=== PATIENT | female | born 1970 | race Caucasian/White ===

== ENCOUNTER 2017-03-30 10:00 | Outpatient (CLI) | payer MEDICARE ==
[~2017-03-30 10:00] MED LIST: FLVX50T PO; GEMF600T PO; HCTZ12.5T GT; LISI10TA2 PO; LVT.15T PO; OXCA300T4 PO
== END 2017-03-30 10:29 | disposition home or self-care (01) ==
LOC: SLEEP 10:00
PROVIDERS: ATTEND Family Medicine
DX: G47.33 Obstructive sleep apnea (adult) (pediatric) (principal)

== ENCOUNTER 2017-04-19 19:34 | Outpatient (CLI) | payer MEDICARE | END 2017-04-20 06:10 | disposition home or self-care (01) | LOC: SLEEP 19:34 | PROVIDERS: ATTEND Family Medicine | DX: G47.33 Obstructive sleep apnea (adult) (pediatric) (principal) | CPT/HCPCS: 95811 ==

== ENCOUNTER 2018-06-04 09:11 | Outpatient (RCR) | payer MEDICARE ==
[2018-06-04 09:35] LABS: BASOPHILS % (AUTO) 0 % (0-10); EOSINOPHILS # (AUTO) 0.2 10^3/uL (0.0-0.3); EOSINOPHILS % (AUTO) 1 % (0-10); HEMATOCRIT 41 % (35-52); HEMOGLOBIN 13.2 G/DL (11.5-16.0); LYMPHOCYTES # (AUTO) 2.9 X 10^3 (1.0-4.0); LYMPHOCYTES % (AUTO) 28 % (12-44); MEAN CORPUSCULAR HEMOGLOBIN 29 PG (25-34); MEAN CORPUSCULAR HGB CONC 32 G/DL (32-36); MEAN CORPUSCULAR VOLUME 89 FL (80-99); MEAN PLATELET VOLUME 9.2 FL (7.4-10.4); MONOCYTES # (AUTO) 0.6 X 10^3 (0.0-1.0); MONOCYTES % (AUTO) 6 % (0-12); NEUTROPHILS # (AUTO) 6.7 X 10^3 (1.8-7.8); NEUTROPHILS % (AUTO) 65 % (42-75); PLATELET COUNT 355 10^3/uL (130-400); RED CELL DISTRIBUTION WIDTH 13.7 % (10.0-14.5); WHITE BLOOD COUNT 10.4 10^3/uL (4.3-11.0)
[2018-06-04 09:56] LABS: ALANINE AMINOTRANSFERASE 27 U/L (0-55); ALBUMIN 4.2 GM/DL (3.2-4.5); ALKALINE PHOSPHATASE 88 U/L (40-136); BILIRUBIN,TOTAL 0.2 MG/DL (0.1-1.0); BUN/CREATININE RATIO 16; CALCIUM 9.6 MG/DL (8.5-10.1); CARBON DIOXIDE 27 MMOL/L (21-32); CHLORIDE 104 MMOL/L (98-107); CREATININE SERUM 0.76 MG/DL (0.60-1.30); GFR ESTIMATED > 60; GLUCOSE 132 MG/DL (70-105); POTASSIUM 3.8 MMOL/L (3.6-5.0); SODIUM 140 MMOL/L (135-145); TOTAL PROTEIN 7.4 GM/DL (6.4-8.2)
== END 2018-09-02 | disposition home or self-care (01) ==
LOC: ONC 09:11
PROVIDERS: ATTEND Internal Medicine Hematology & Oncology
DX: D72.829 Elevated white blood cell count, unspecified (principal); Z22.322 Carrier or suspected carrier of Methicillin resistant Staphylococcus aureus; E66.9 Obesity, unspecified; F17.210 Nicotine dependence, cigarettes, uncomplicated; F41.9 Anxiety disorder, unspecified; I10 Essential (primary) hypertension; Z80.1 Family history of malignant neoplasm of trachea, bronchus and lung; Z79.899 Other long term (current) drug therapy; Z79.84 Long term (current) use of oral hypoglycemic drugs
CPT/HCPCS: 36415; 80053; 85025; 99214

== ENCOUNTER → 2018-11-07 | Outpatient (CLI) | payer MEDICARE ==
--- NOTE | 2018-11-07 17:44 | Diagnostic Imaging Report ---
PATIENT HISTORY: RIGHT KNEE PAIN. TECHNIQUE: Three views of the right knee. COMPARISON: None. FINDINGS: No acute fracture or dislocation is seen in the right knee. Alignment appears normal. Joint spaces are generally preserved. There is mild chondrocalcinosis. No significant joint effusion is present. IMPRESSION: No acute osseous abnormality seen in the right knee. Dictated by: Dictated on workstation # [id number]
== END ==
LOC: RAD 11:37
PROVIDERS: ATTEND Nurse Practitioner Family
DX: M25.561 Pain in right knee (principal)
CPT/HCPCS: 73562

== ENCOUNTER 2020-05-04 05:48 | Outpatient (RCR) | payer MEDICARE ==
[~2020-05-04] VITALS: Ht 165 cm; Wt 113.6 kg
[~2020-05-04 05:48] MED LIST changes: +FLUT9.9S NS; +FLUV100T3 PO; +GEMF600T8 PO; +LEVO100T7 PO; +LISI1TAB46 PO; +LORA-714 PO; +METF-397 PO; +OXCA150T3 PO; +VERA120C2 PO
== END 2020-05-04 09:42 | disposition home or self-care (01) ==
LOC: PREOP 05:48
PROVIDERS: ATTEND Orthopaedic Surgery
DX: Z01.812 Encounter for preprocedural laboratory examination (principal); S83.241A Other tear of medial meniscus, current injury, right knee, initial encounter; Z20.828 Contact with and (suspected) exposure to other viral communicable diseases
CPT/HCPCS: 87635

== ENCOUNTER 2020-05-06 07:38 | Day surgery (SDC) | payer MEDICARE ==
--- NOTE | 2020-04-27 12:46 | HISTORY AND PHYSICAL ---
DATE OF SERVICE: ADMISSION HISTORY AND PHYSICAL DATE OF ADMISSION: 05/06/2020. This will be for outpatient surgery on 05/06/2020 for right knee arthroscopy. HISTORY OF PRESENT ILLNESS: The patient is a 49-year-old female with progressively worsening right medial knee pain with associated swelling, catching and locking. She reports a sharp stabbing pain at times in the medial aspect of her knee. She denies paresthesias. She has had some back issues in the past, but reports no radicular symptoms currently. REVIEW OF SYSTEMS: No chest pain, no shortness of breath and no dysuria. PAST MEDICAL HISTORY: Hypertension, heart palpitations, prediabetes and sleep apnea. PAST SURGICAL HISTORY: Bilateral vein stripping, breast biopsy, tonsillectomy, hysterectomy, abdominal cyst excision, hammertoe correction, cholecystectomy, appendectomy and . FAMILY HISTORY: Significant for hypertension. PRIMARY CARE PROVIDER: Dr. Caraballo. MEDICATIONS: Levothyroxine, Lopid, fluvoxamine, lisinopril, Flonase, verapamil, metformin, loratadine and Trileptal. ALLERGIES: BACTRIM and STATINS. SOCIAL HISTORY: The patient denies alcohol or tobacco use. RADIOGRAPHS: Reveal mild medial joint space narrowing. PHYSICAL EXAMINATION: GENERAL: The patient is well-developed, well-nourished, in no acute distress. HEENT: Normocephalic and atraumatic. Pupils are equal, round, reactive to light. Oropharynx is clear. NECK: Supple, no lymphadenopathy. LUNGS: Clear to auscultation bilaterally. HEART: Regular rate and rhythm. ABDOMEN: Soft, nontender and nondistended. EXTREMITIES: The right knee demonstrates moderate effusion. She is markedly tender along the medial joint line, which reproduces her symptoms along with Abril's medially. There is no audible click with Abril's. There is no varus valgus laxity. Negative anterior and posterior drawer. Range of motion is 0/0/135. She has no pain with straight leg raising or internal or external rotation of the right hip. IMPRESSION: Right knee medial meniscus tear with associated chondromalacia. PLAN: Right knee arthroscopy with partial meniscectomy and chondroplasty. Risks, benefits, options, ramifications and recovery were discussed at length with the patient. She understands and wishes to proceed. Job ID: [id number] DocumentID: [id number] Dictated Date: 04/27/2020 11:24:11 Fiber Picker Date: 04/27/2020 12:45:53 Dictated By: MONICA CUMMINGS MD
[~2020-05-06] VITALS: Ht 165 cm; Wt 113.6 kg
[2020-05-06] VITALS (10 sets, daily range): BP systolic 112–138; BP diastolic 61–90
[~2020-05-06 07:38] MED LIST changes: +HYDROcodone/APAP 7.5 MG/325 MG (LORTAB, LORCET PLUS) TABLET PO PRN
[2020-05-06] MEDS ORDERED: LACTATED RINGERS 1,000 ML IV PRN (07:49)
[2020-05-06] MEDS ORDERED: ceFAZolin INJECTION 1,000 MG in WATER (STERILE) FOR INJECTION 10 ML IV ONE (08:00)
[2020-05-06] MEDS ORDERED: CATHETER FLUSH 10 ML SYR IV PRN (08:00)
[2020-05-06] MEDS ORDERED: MIDAZOLAM 2 MG/2 ML (VERSED) VIAL ONE (08:32)
[2020-05-06] MEDS ORDERED: proPOfol 200 MG/20 ML (DIPRIVAN) VIAL IV ONE (08:32)
[2020-05-06] MEDS ORDERED: ONDANSETRON 4 MG/2 ML (SDV) Z0FRAN ONE (08:32)
[2020-05-06] MEDS ORDERED: LIDOCAINE PF 2% 5 ML (XYLOCAINE) VIAL ONE (08:32)
[2020-05-06] MEDS ORDERED: fentaNYL INJECTION 100 MCG/2 ML AMP ONE ×2 (08:32→09:53)
[2020-05-06] MEDS ORDERED: SEVOFLURANE (ULTANE) 15 ML INHAL SOLN ONE (08:35)
[2020-05-06] MEDS ORDERED: morphine PF (DURAMORPH) 10 MG/10 ML AMP ONE (08:58)
[2020-05-06] MEDS ORDERED: BUPIVACAINE 0.25% 30 ML (SENSORCAINE) VIAL ONE (09:09)
--- NOTE | 2020-05-06 09:44 | Progress Note-Pre Operative ---
Pre-Operative Progress Note H&P Reviewed The H&P was reviewed, patient examined and no changes noted. Date Seen by Provider: May 06, 2020 Time Seen by Provider: 09:37 Date H&P Reviewed: May 06, 2020 Time H&P Reviewed: 09:31 Pre-Operative Diagnosis: right knee medial meniscus tear and chondromalacia MONICA CUMMINGS MD May 06, 2020 09:44
--- NOTE | 2020-05-06 09:45 | Progress Note-Post Operative ---
Post-Operative Progess Note Surgeon (s)/Cadmium Burner (s) Surgeon MONICA CUMMINGS MD Cadmium Burner: Lucas Hernandez Pre-Operative Diagnosis right knee medial meniscus tear and chondromalacia Post-Operative Diagnosis right knee medial meniscus tear and chondromalacia of the patella and medial femoral condyle Procedure & Operative Findings Date of Procedure 05/06/20 Procedure Performed/Findings right knee arthroscopic partial medial meniscectomy and chondroplasty of the patella and medial femoral condyle Anesthesia Type GETA Estimated Blood Loss Estimated blood loss (mL): minimal Specimens/Packing Specimens Removed none Packing: none MONICA CUMMINGS MD May 06, 2020 09:45
[2020-05-06] MEDS ORDERED: morphine INJ 10 MG/ML 1ML (SYR OR VIAL) ONE (10:18)
[2020-05-06] MEDS ORDERED: PROMETHAZINE INJ 25 MG/ML (PHENERGAN) AMP IVP ONE (10:30)
[2020-05-06] MEDS ORDERED: HYDROmorphone 2 MG/ML VIAL (DILAUDID) IV ONE (10:30)
[2020-05-06] MEDS ORDERED: MEPERIDINE (DEMEROL) INJ 50 MG/ML IVP ONE (10:30)
[2020-05-06] MEDS ORDERED: ONDANSETRON 4 MG/2 ML (SDV) Z0FRAN IVP PRN (10:30)
[2020-05-06] MEDS ORDERED: morphine INJ 10 MG/ML 1ML (SYR OR VIAL) IVP ONE (10:30)
--- NOTE | 2020-05-06 11:10 | NUR ---
TO AMB SURG FROM PAR PER CART. AWAKE, DENIES LEFT KNEE PAIN. MARSHALL WRAPPED DRESSING D/I TO LEFT KNEE. CMS CHECKS WNL TO LEFT LEG. ICE CHIPS PROVIDED. STATES SHE FEELS "DIZZY". BED RAILS UP X2. BED LOW, LOCKED, CALL LIGHT TO PT AND MOM AT SIDE.
--- NOTE | 2020-05-06 12:19 | Anesthesia-General Post-Op ---
General Patient Condition Mental Status/LOC: Same as Preop Cardiovascular: Satisfactory Nausea/Vomiting: Absent Respiratory: Satisfactory Pain: Controlled Complications: Absent Post Op Complications Complications None Follow Up Care/Instructions Patient Instructions None needed. Anesthesia/Patient Condition Patient Condition Patient is doing well, no complaints, stable vital signs, no apparent adverse anesthesia problems. No complications reported per nursing. JOSE BEAR CRNA May 06, 2020 12:19
--- NOTE | 2020-05-06 12:30 | NUR ---
HAS BEEN UP WITH PHYSICAL THERAPY FOR CRUTCH TRAINING. CRUTCHES PROVIDED. NOW RESTING QUIETLY IN BED. COMPLAINS OCCASIONALLY ABOUT MILD NAUSEA AND DIZZINESS. COOL CLOTH TO BACK OF NECK AND FOREHEAD. ALSO STATES SHE HAS "EXTREME SOCIAL ANXIETY" AND FEELS AGITATED AND ANXIOUS AT THIS TIME. OFFERED TO CONTACT PROVIDER FOR MEDICAL INTERVENTION, REFUSED. STATES SHE WILL DO THE NON-PHARMACEUTICAL TECHNIQUES SHE USES AT HOME TO CALM HERSELF. FAN PROVIDED PER PT REQUEST.
[2020-05-06] MEDS ORDERED: HYDR-3817 PO (12:51)
--- NOTE | 2020-05-06 12:51 | Physical Therapy Ortho Eval ---
PT Orthopedic Evaluation Type of Surgery Knee Scope RLE Prior Level of Function Current Living Status: Spouse (with children) Locomotion (Upon Admit): Independent Subjective Subjective Patient in bed pre tx, agrees to PT, has no complaints of pain but has been having some nausea. Entry Into Home: Stairs Without Railing Steps Into Home: 1 Motor Control Motor Control: Motor Control WNL ROM right knee has full extension and 80 degrees flexion Transfer SCALE: Activities may be completed with or without assistive devices. 6-Pekbnkjsri-etfwiiy completes the activity by him/herself with no assistance from a helper. 5-Set-up or Clean-up Assistance-helper sets up or cleans up; patient completes activity. [place] assists only prior to or following the activity. 4-Supervision or Touching Assistance-helper provides verbal cues and/or touching/steadying and/or contact guard assistance as patient completes activity. Assistance may be provided throughout the activity or intermittently. 3-Partial/Moderate Assistance-helper does LESS THAN HALF the effort. [place] lifts, holds or supports trunk or limbs, but provides less than half the effort. 2-Substantial/Maximal Assistance-helper does MORE THAN HALF the effort. [place] lifts or holds trunk or limbs and provides more than half the effort. 6-Gnrbrgdzy-readgq does ALL the effort. Patient does none of the effort to complete the activity. Or, the assistance of 2 or more helpers is required for the patient to complete the activity. If activity was not attempted, code reason: 7-Patient Refused. 9-Not Applicable-not attempted and the patient did not perform the activity before the current illness, exacerbation or injury. 10-Not Attempted due to Environmental Limitations-(lack of equipment, weather restraints, etc.). 88-Not Attempted due to Medical Conditions or Safety Concerns. Transfers (B, C, W/C) (QC): 4 Gait Gait (QC): 4 Summary/Comments Patient ambulated 20' total with CGA using axillary crutches. Patient has no issues with bearing weight on her right leg (WBAT) but started getting light headed before being able to go up and down a step and needed to head back to the bed. Patient had no LOB, light headedness was her only issue. It was demonstrated to the patient how to go up and down 1 step, which is what she will have to do at home. Treatment Rendered Treatment: Therapeutic Exercises, Gait Train, Step Train Exercise Instruction: Quad Sets, Heel Slides, Ankle Pumps Assessment/Goals Goal Time Frame: 1 Visit Understands HEP: Yes Safe Ambulation: Yes Plan Treatment Plan: Discharge PT/Family Agrees to Plan: Yes Time Time In: 1150 Time Out: 1203 Total Billed Treatment Time: 13 Billed Treatment Time 1 visit EVL 13' LO VELASCO PT May 06, 2020 12:51
--- NOTE | 2020-05-06 13:20 | NUR ---
STATES SHE IS READY FOR DISMISSAL. NO CHANGE IN LEFT KNEE SITE ASSESSMENT.
--- NOTE | 2020-05-06 19:54 | OPERATIVE REPORT ---
DATE OF SERVICE: PREOPERATIVE DIAGNOSES: 1. Right knee medial meniscus tear. 2. Right knee chondromalacia of the patella. POSTOPERATIVE DIAGNOSES: 1. Right knee medial meniscus tear. 2. Right knee chondromalacia of the patella. 3. Right knee chondromalacia of the medial femoral condyle. PROCEDURES: 1. Right knee arthroscopic partial medial meniscectomy. 2. Right knee arthroscopic chondroplasty of the medial femoral condyle. 3. Right knee arthroscopic chondroplasty of patella. SURGEON: Tico Alegre MD BUSINESS PROCESS REPRESENTATIVE: Lucas Hernandez, who assisted throughout the procedure and closed the incisions. ANESTHESIA: General endotracheal by Deven Velasquez CRNA. TOURNIQUET TIME: Not applicable. ESTIMATED BLOOD LOSS: Minimal. DRAINS: None. COMPLICATIONS: None. POSTOPERATIVE PLAN: Routine arthroscopy protocol. The patient was transferred to the recovery room awake and in stable condition. STATEMENT OF MEDICAL NECESSITY: The patient is a 49-year-old female with complaints of right knee pain, catching, locking and swelling. She has patellofemoral crepitus and pain with patellar loading as well as tenderness along posteromedial joint line pain medially with Abril's. Due to functional impairment and failure to improve with conservative measures, the patient elected to proceed with surgical intervention. Examination under anesthesia revealed a range of motion of 0/0/135 with negative Jona, negative anterior and posterior drawer. No varus valgus laxity, negative pivot shift. Arthroscopic findings of patella demonstrated grade II to III chondral flap centrally and 10 x 10. Trochlea demonstrated no gross chondral abnormalities. Medial and lateral gutters were clear. The ACL and PCL were intact. The lateral compartment demonstrated no meniscal or chondral pathology. The medial compartment demonstrated a horizontal cleavage tear of the posterior horn of the medial meniscus involving approximately one-third of the posterior horn. In addition, there were grade II chondral flaps of the central portion of femoral condyle in 10 x 10 area and grade I chondral softening of the central portion of the tibial plateau. DESCRIPTION OF PROCEDURE: After risks and benefits of procedure were discussed and questions were answered, informed consent was accomplished on chart, the operative site was confirmed the preoperative holding area initialed by the surgeon. The patient was then transferred to the operating room. After adequate levels of general endotracheal anesthetic were obtained, a timeout was called, confirming the operative site. Examination under anesthesia was performed with above findings noted. The right lower extremity was prepped and draped in the usual sterile fashion. The knee joint was injected with 60 mL of fluid and standard inferolateral portal was placed with the arthroscope under direct visualization, inferior medial portal was created. The menisci and cruciates were carefully probed, above findings noted. Then, stable chondral flaps on the patella were debrided with shaver back to a stable edge. Scope was redirected from compartment and unstable chondral flaps of the medial femoral condyle were debrided with shaver back to a stable edge. The posterior horn of the medial meniscus was debrided with biter and shaver removing approximately one-third of the posterior horn. This was carefully probed with no further tearing or instability noted. Knee was copiously irrigated. Port sites were closed with 4-0 nylon in simple interrupted fashion. Knee was injected with Duramorph. Port sites were infiltrated with plain Marcaine. A soft dressing was applied. The patient was transferred to recovery room awake and in stable condition. Job ID: [id number] DocumentID: [id number] Dictated Date: 05/06/2020 10:19:47 Furnace Erector Date: 05/06/2020 19:53:31 Dictated By: TICO ALEGRE MD
== END 2020-05-06 13:20 | disposition home or self-care (01) ==
LOC: SDC 07:38
PROVIDERS: ATTEND Orthopaedic Surgery
DX: S83.241A Other tear of medial meniscus, current injury, right knee, initial encounter (principal); M22.41 Chondromalacia patellae, right knee; I10 Essential (primary) hypertension; G47.33 Obstructive sleep apnea (adult) (pediatric); F32.9 Major depressive disorder, single episode, unspecified; K21.9 Gastro-esophageal reflux disease without esophagitis; E11.9 Type 2 diabetes mellitus without complications; E03.9 Hypothyroidism, unspecified; E66.01 Morbid (severe) obesity due to excess calories; Z68.41 Body mass index [BMI] 40.0-44.9, adult; Z79.84 Long term (current) use of oral hypoglycemic drugs; Z79.899 Other long term (current) drug therapy; Z88.2 Allergy status to sulfonamides; Z88.8 Allergy status to other drugs, medicaments and biological substances; Z88.1 Allergy status to other antibiotic agents; Z90.710 Acquired absence of both cervix and uterus; Z90.49 Acquired absence of other specified parts of digestive tract
CPT/HCPCS: 82962; 87081